=== PATIENT | male | born 1965 | race African-American/Black ===

== ENCOUNTER 2022-03-23 11:22 | Inpatient (IN) | payer OTHER ==
[~2022-03-23] VITALS: Ht 180.3 cm; Wt 67.3 kg
[2022-03-23] MEDS ORDERED: MORPHINE SULFATE 4 MG/ML CPJ (NOT FOR IM USE) IV STA ×2 (12:48→14:18)
[2022-03-23] MEDS ORDERED: ONDANSETRON HCL 4MG/2ML INJ IV STA (12:48)
[2022-03-23] MEDS ORDERED: SODIUM CHLORIDE 0.9% 1,000 ML IV ONE (13:00)
[2022-03-23 13:24] LABS: BASOPHILS % 0.5 % (0.0-2.0); EOSINOPHILS % 1.6 % (0.0-5.0); HEMATOCRIT. 44.9 % (42.0-52.0); HEMOGLOBIN. 14.8 g/dL (14.0-18.0); LYMPHOCYTES % 15.7 % (20.0-50.0); MEAN CORPUSCULAR HEMOGLOBIN 30.4 pg (28.0-32.0); MEAN CORPUSCULAR VOLUME 92.6 fL (80.0-94.0); MEAN PLATELET VOLUME 8.2 fl (7.4-10.4); MONOCYTES % 8.4 % (2.0-8.0); NEUTROPHILS % 73.8 % (40.0-76.0); PLATELET 351 x1000/uL (130-400); RED BLOOD CELL COUNT 4.85 mill/uL (4.7-6.1); RED CELL DISTRIBUTION WIDTH 14.6 % (11.6-14.6)
[2022-03-23 13:32] LABS: CHLORIDE 104 mEq/L (98-107)
[2022-03-23] MEDS ORDERED: MORPHINE SULFATE 4 MG/ML CPJ (NOT FOR IM USE) IV SCH ×2 (14:15→14:30)
[2022-03-23] MEDS ORDERED: ONDANSETRON HCL 4MG/2ML INJ IV SCH (14:30)
[2022-03-23] MEDS ORDERED: LOSARTAN POTASSIUM 25 MG TABLET PO ONE (16:30)
[2022-03-23] MEDS ORDERED: NALOXONE HCL 0.4 MG/ML 1ML VIAL IV PRN (22:00)
[2022-03-24] MEDS: MORPHINE SULFATE 2 MG/ML CPJ (NOT FOR IM USE) IV PRN ×4 (00:45→22:12)
[2022-03-24 06:38] VITALS: BP 105/83
[2022-03-24 08:00] VITALS: BP 124/85
[2022-03-24 08:16] VITALS: BP 120/74
[2022-03-24] MEDS ORDERED: ONDANSETRON HCL 4MG/2ML INJ IV PRN (09:15)
[2022-03-24] MEDS ORDERED: CLONIDINE 0.1MG TABLET PO PRN (09:15)
[2022-03-24] MEDS ORDERED: ACETAMINOPHEN 325MG TABLET PO PRN (09:15)
[2022-03-24] MEDS ORDERED: IPRATROPIUM/ALBUTEROL 0.5-3(2.5)MG/3ML NEB HHN PRN (09:15)
[2022-03-24 11:44] VITALS: BP 98/62
[2022-03-24] MEDS ORDERED: ENOXAPARIN 80MG/0.8ML SYR SUBCUT SCH (13:30)
[2022-03-24 16:00] VITALS: BP 128/79
[2022-03-24 16:04] LABS: INR 1.1; PROTHROMBIN TIME 11.9 sec (9.6-11.0)
[2022-03-24 20:00] VITALS: BP 122/80
[2022-03-25] VITALS (30 sets, daily range): BP systolic 85–149; BP diastolic 43–88
[2022-03-25 07:29] LABS: BASOPHILS % 0.5 % (0.0-2.0); EOSINOPHILS % 2.2 % (0.0-5.0); HEMATOCRIT. 43.2 % (42.0-52.0); HEMOGLOBIN. 14.4 g/dL (14.0-18.0); LYMPHOCYTES % 23.1 % (20.0-50.0); MEAN CORPUSCULAR HEMOGLOBIN 31.1 pg (28.0-32.0); MEAN CORPUSCULAR VOLUME 93.1 fL (80.0-94.0); MEAN PLATELET VOLUME 8.3 fl (7.4-10.4); MONOCYTES % 9.4 % (2.0-8.0); NEUTROPHILS % 64.8 % (40.0-76.0); PLATELET 379 x1000/uL (130-400); RED BLOOD CELL COUNT 4.64 mill/uL (4.7-6.1); RED CELL DISTRIBUTION WIDTH 14.1 % (11.6-14.6)
[2022-03-25 07:41] LABS: CHLORIDE 104 mEq/L (98-107)
[2022-03-25] MEDS: MORPHINE SULFATE 2 MG/ML CPJ (NOT FOR IM USE) IV PRN (07:42)
[2022-03-25] MEDS ORDERED: THROMBIN (BOVINE) 5000 UNITS/VIAL TOP ONE (11:32)
[2022-03-25] MEDS ORDERED: GENTAMICIN SULF 40MG/ML 2ML VIAL ONE (11:33)
[2022-03-25] MEDS ORDERED: BUPIVACAINE HCL 0.5% (5MG/ML) 50ML ONE (11:33)
[2022-03-25] MEDS ORDERED: LIDOCAINE HCL/EPINEPHRINE 1%-EPI 1:100,000 20 ML VIAL ONE (11:45)
[2022-03-25] MEDS ORDERED: ROCURONIUM BROMIDE 10MG/ML VIAL 5ML IV ONE (12:10)
[2022-03-25] MEDS ORDERED: LEVETIRACETAM 500 MG in SODIUM CHLORIDE 0.9% 100 ML IV SCH (12:15)
[2022-03-25] MEDS ORDERED: NICARDIPINE 100 MG in SODIUM CHLORIDE 0.9% 60 ML IV PRN (12:15)
[2022-03-25] MEDS ORDERED: HYDROMORPHONE HCL/PF 2MG/ML CPJ ONE (12:47)
[2022-03-25] MEDS ORDERED: CALCIUM CHLORIDE 1GM/10ML SYR IV ONE (12:53)
[2022-03-25] MEDS ORDERED: ONDANSETRON HCL 4MG/2ML INJ ONE (13:06)
[2022-03-25] MEDS ORDERED: DEXAMETHASONE 4MG/ML 1ML VIAL ONE (13:06)
[2022-03-25] MEDS ORDERED: CEFAZOLIN SODIUM 1000MG/VIAL ONE (13:06)
[2022-03-25] MEDS ORDERED: METOPROLOL TARTRATE 5MG/5ML VIAL IV ONE ×2 (13:06→13:31)
[2022-03-25] MEDS ORDERED: NEOSTIGMINE METHYLSULFATE 1MG/ML 10 ML VIAL ONE (13:07)
[2022-03-25] MEDS ORDERED: BACITRACIN 15GM TUBE TOP ONE (13:08)
[2022-03-25] MEDS ORDERED: GLYCOPYRROLATE 0.2 MG/ML 2ML VIAL ONE ×2 (13:08)
[2022-03-25] MEDS ORDERED: HYDRALAZINE 20MG/ML VIAL ONE (13:34)
[2022-03-25] MEDS ORDERED: CEFAZOLIN SODIUM 1000MG/VIAL IV SCH (14:00)
[2022-03-25] MEDS ORDERED: LEVETIRACETAM 500MG PREMIX 100 ML IV SCH (14:00)
[2022-03-25] MEDS: MORPHINE SULFATE 4 MG/ML CPJ (NOT FOR IM USE) IV PRN ×2 (14:02→20:27)
[2022-03-25] MEDS: DEXT 5%/LACTATED RINGERS 1,000 ML IV SCH (14:03)
[2022-03-25] MEDS ORDERED: CEFAZOLIN 1000MG PREMIX 50 ML IV SCH (15:30)
[2022-03-25] MEDS: CEFAZOLIN 1000MG PREMIX 50 ML IV SCH (17:11)
[2022-03-25] MEDS: LEVETIRACETAM 500MG PREMIX 100 ML IV SCH ×2 (17:11→22:30)
[2022-03-25 18:23] LABS: CLARITY URINE CLEAR (CLEAR); COLOR URINE YELLOW (YELLOW); KETONES URINE 1+ (NEGATIVE); LEUKOCYTE ESTERASE URINE 1+ (NEGATIVE); NITRITE URINE POSITIVE (NEGATIVE); OCCULT BLOOD URINE NEGATIVE (NEGATIVE); PROTEIN URINE 1+ (NEGATIVE); SPECIFIC GRAVITY URINE 1.024 (1.005-1.030); UROBILINOGEN URINE 0.2 E.U./dL (0.2-1.0)
[2022-03-26] VITALS (81 sets, daily range): BP systolic 33–150; BP diastolic 26–111
[2022-03-26] MEDS: CEFAZOLIN 1000MG PREMIX 50 ML IV SCH ×3 (00:24→17:42)
[2022-03-26] MEDS: MORPHINE SULFATE 4 MG/ML CPJ (NOT FOR IM USE) IV PRN ×7 (01:03→21:11)
[2022-03-26] MEDS: DEXT 5%/LACTATED RINGERS 1,000 ML IV SCH (04:55)
[2022-03-26 05:30] LABS: BASOPHILS % 0.2 % (0.0-2.0); EOSINOPHILS % 0.3 % (0.0-5.0); HEMATOCRIT. 35.5 % (42.0-52.0); HEMOGLOBIN. 12.1 g/dL (14.0-18.0); MEAN CORPUSCULAR HEMOGLOBIN 31.2 pg (28.0-32.0); MEAN CORPUSCULAR VOLUME 91.3 fL (80.0-94.0); MEAN PLATELET VOLUME 8.6 fl (7.4-10.4); MONOCYTES % 11.6 % (2.0-8.0); NEUTROPHILS % 73.9 % (40.0-76.0); PLATELET 349 x1000/uL (130-400); RED BLOOD CELL COUNT 3.89 mill/uL (4.7-6.1); RED CELL DISTRIBUTION WIDTH 14.3 % (11.6-14.6)
[2022-03-26] MEDS: DIPHENHYDRAMINE 50MG/ML VIAL IV PRN ×3 (07:53→20:11)
[2022-03-26] MEDS: LEVETIRACETAM 500MG PREMIX 100 ML IV SCH ×2 (07:54→20:19)
[2022-03-26] MEDS ORDERED: BISACODYL 5MG TABLET PO PRN (17:45)
[2022-03-27] VITALS (55 sets, daily range): BP systolic 79–146; BP diastolic 44–125
[2022-03-27] MEDS: MORPHINE SULFATE 4 MG/ML CPJ (NOT FOR IM USE) IV PRN ×5 (00:50→17:05)
[2022-03-27] MEDS: CEFAZOLIN 1000MG PREMIX 50 ML IV SCH ×2 (00:54→09:06)
[2022-03-27] MEDS: DIPHENHYDRAMINE 50MG/ML VIAL IV PRN ×2 (02:23→11:04)
[2022-03-27] MEDS: DEXT 5%/LACTATED RINGERS 1,000 ML IV SCH (03:35)
[2022-03-27 05:39] LABS: BASOPHILS % 0.6 % (0.0-2.0); EOSINOPHILS % 1.7 % (0.0-5.0); HEMATOCRIT. 38.1 % (42.0-52.0); HEMOGLOBIN. 12.8 g/dL (14.0-18.0); LYMPHOCYTES % 16.9 % (20.0-50.0); MEAN CORPUSCULAR VOLUME 92.1 fL (80.0-94.0); MEAN PLATELET VOLUME 8.5 fl (7.4-10.4); MONOCYTES % 11.4 % (2.0-8.0); NEUTROPHILS % 69.4 % (40.0-76.0); PLATELET 344 x1000/uL (130-400); RED BLOOD CELL COUNT 4.14 mill/uL (4.7-6.1); RED CELL DISTRIBUTION WIDTH 14.5 % (11.6-14.6)
[2022-03-27 06:29] LABS: CHLORIDE 106 mEq/L (98-107)
[2022-03-27] MEDS: LEVETIRACETAM 500MG PREMIX 100 ML IV SCH ×2 (09:06→22:52)
[2022-03-27] MEDS ORDERED: POTASSIUM CHLORIDE 20MEQ TABLET SR PO NR (10:00)
[2022-03-27] MEDS: SODIUM CHLORIDE 0.9% 1,000 ML IV SCH ×2 (10:46→21:48)
[2022-03-27] MEDS: HYDROCODONE/ACETAMINOPHEN 5/325MG TABLET PO PRN ×2 (11:05→21:49)
[2022-03-28] VITALS: BP 111/78
[2022-03-28] MEDS: HYDROCODONE/ACETAMINOPHEN 5/325MG TABLET PO PRN (03:28)
[2022-03-28 04:00] VITALS: BP 127/76
[2022-03-28 08:00] VITALS: BP 114/74
[2022-03-28] MEDS: LEVETIRACETAM 500MG PREMIX 100 ML IV SCH ×2 (09:17→20:57)
[2022-03-28] MEDS: DIPHENHYDRAMINE 50MG/ML VIAL IV PRN ×2 (10:43→20:57)
[2022-03-28 12:00] VITALS: BP 117/67
[2022-03-28] MEDS: MORPHINE SULFATE 4 MG/ML CPJ (NOT FOR IM USE) IV PRN ×2 (13:09→20:58)
[2022-03-28 16:00] VITALS: BP 111/77
[2022-03-28] MEDS: HYDROCODONE/ACETAMINOPHEN 10/325MG TABLET PO PRN (17:25)
[2022-03-28 20:00] VITALS: BP 114/68
[2022-03-29 00:17] VITALS: BP 135/82
[2022-03-29] MEDS: MORPHINE SULFATE 4 MG/ML CPJ (NOT FOR IM USE) IV PRN ×5 (00:44→21:55)
[2022-03-29] MEDS: SODIUM CHLORIDE 0.9% 1,000 ML IV SCH (02:00)
[2022-03-29 04:00] VITALS: BP 133/88
[2022-03-29 08:00] VITALS: BP 123/76
[2022-03-29] MEDS: LEVETIRACETAM 500MG PREMIX 100 ML IV SCH (08:57)
[2022-03-29 12:00] VITALS: BP 111/71
[2022-03-29] MEDS: HYDROCODONE/ACETAMINOPHEN 10/325MG TABLET PO PRN (12:36)
[2022-03-29 16:00] VITALS: BP 128/81
[2022-03-29] MEDS: LEVETIRACETAM 500MG TABLET PO SCH (17:46)
[2022-03-29 20:00] VITALS: BP 125/81
[2022-03-29] MEDS: DIPHENHYDRAMINE 50MG/ML VIAL IV PRN (21:55)
[2022-03-30] VITALS: BP 128/74
[2022-03-30 04:00] VITALS: BP 111/77
[2022-03-30] MEDS: MORPHINE SULFATE 4 MG/ML CPJ (NOT FOR IM USE) IV PRN ×2 (04:41→09:07)
[2022-03-30 08:00] VITALS: BP 123/82
[2022-03-30] MEDS: LEVETIRACETAM 500MG TABLET PO SCH ×2 (09:06→18:03)
[2022-03-30 12:00] VITALS: BP 117/73
[2022-03-30] MEDS: HYDROCODONE/ACETAMINOPHEN 10/325MG TABLET PO PRN ×2 (13:47→21:31)
[2022-03-30 16:00] VITALS: BP 118/75
[2022-03-30 20:00] VITALS: BP 125/85
[2022-03-30] MEDS: HYDROCODONE/ACETAMINOPHEN 5/325MG TABLET PO PRN (23:29)
[2022-03-31] VITALS: BP 122/86
[2022-03-31 04:00] VITALS: BP 126/90
[2022-03-31] MEDS: HYDROCODONE/ACETAMINOPHEN 10/325MG TABLET PO PRN ×3 (06:05→20:24)
[2022-03-31] MEDS ORDERED: CLINDAMYCIN 600 MG PREMIX 50 ML IV NR (07:00)
[2022-03-31 07:42] VITALS: BP 120/74
[2022-03-31] MEDS ORDERED: IOHEXOL-300 100 ML BOTTLE ONE (07:54)
[2022-03-31] MEDS ORDERED: LIDOCAINE HCL 1% 20ML VIAL (Pyxis) INJ ONE (07:54)
[2022-03-31] MEDS ORDERED: IOHEXOL-300 50 ML BOTTLE IV ONE (07:54)
[2022-03-31] MEDS ORDERED: HEPARIN 1,000 UNITS PREMIX 0 ML IV ONE (07:54)
[2022-03-31 08:56] LABS: BASOPHILS % 0.6 % (0.0-2.0); EOSINOPHILS % 4.3 % (0.0-5.0); HEMATOCRIT. 37.3 % (42.0-52.0); HEMOGLOBIN. 12.1 g/dL (14.0-18.0); LYMPHOCYTES % 18.7 % (20.0-50.0); MEAN CORPUSCULAR HEMOGLOBIN 30.4 pg (28.0-32.0); MEAN CORPUSCULAR VOLUME 93.8 fL (80.0-94.0); MEAN PLATELET VOLUME 7.9 fl (7.4-10.4); MONOCYTES % 9.4 % (2.0-8.0); PLATELET 448 x1000/uL (130-400); RED BLOOD CELL COUNT 3.98 mill/uL (4.7-6.1); RED CELL DISTRIBUTION WIDTH 14.2 % (11.6-14.6)
[2022-03-31] MEDS: LEVETIRACETAM 500MG TABLET PO SCH ×2 (08:57→17:00)
[2022-03-31 09:09] LABS: CHLORIDE 106 mEq/L (98-107)
[2022-03-31 12:30] VITALS: BP 128/80
[2022-03-31 16:00] VITALS: BP 128/76
[2022-03-31 20:00] VITALS: BP 109/80
[2022-03-31] MEDS: HYDROCODONE/ACETAMINOPHEN 5/325MG TABLET PO PRN (22:29)
[2022-04-01] VITALS (7 sets, daily range): BP systolic 105–155; BP diastolic 29–83
[2022-04-01] MEDS: HYDROCODONE/ACETAMINOPHEN 10/325MG TABLET PO PRN ×3 (04:58→21:25)
[2022-04-01] MEDS: LEVETIRACETAM 500MG TABLET PO SCH ×2 (09:34→18:26)
[2022-04-01] MEDS: HYDROCODONE/ACETAMINOPHEN 5/325MG TABLET PO PRN (09:57)
[2022-04-01 10:32] LABS: CHLORIDE 104 mEq/L (98-107)
[2022-04-01 10:34] LABS: BASOPHILS % 0.7 % (0.0-2.0); EOSINOPHILS % 4.5 % (0.0-5.0); HEMATOCRIT. 36.2 % (42.0-52.0); HEMOGLOBIN. 12.1 g/dL (14.0-18.0); LYMPHOCYTES % 24.8 % (20.0-50.0); MEAN CORPUSCULAR HEMOGLOBIN 30.5 pg (28.0-32.0); MEAN CORPUSCULAR VOLUME 91.2 fL (80.0-94.0); MEAN PLATELET VOLUME 7.9 fl (7.4-10.4); MONOCYTES % 9.8 % (2.0-8.0); NEUTROPHILS % 60.2 % (40.0-76.0); PLATELET 504 x1000/uL (130-400); RED BLOOD CELL COUNT 3.97 mill/uL (4.7-6.1); RED CELL DISTRIBUTION WIDTH 14.4 % (11.6-14.6)
[2022-04-02] VITALS: BP 119/73
[2022-04-02] MEDS: HYDROCODONE/ACETAMINOPHEN 5/325MG TABLET PO PRN (02:08)
[2022-04-02 04:00] VITALS: BP 124/80
[2022-04-02 08:00] VITALS: BP 112/80
[2022-04-02] MEDS: LEVETIRACETAM 500MG TABLET PO SCH ×2 (08:54→17:58)
[2022-04-02] MEDS: HYDROCODONE/ACETAMINOPHEN 10/325MG TABLET PO PRN ×3 (08:55→20:58)
[2022-04-02 12:00] VITALS: BP 110/78
[2022-04-02 16:00] VITALS: BP 111/76
[2022-04-02] MEDS ORDERED: NALOXONE HCL 0.4MG/ML VIAL IV PRN (18:45)
[2022-04-02 20:00] VITALS: BP 129/76
[2022-04-03] VITALS (7 sets, daily range): BP systolic 110–128; BP diastolic 62–88
[2022-04-03] MEDS: HYDROCODONE/ACETAMINOPHEN 10/325MG TABLET PO PRN ×3 (06:14→17:36)
[2022-04-03] MEDS: LEVETIRACETAM 500MG TABLET PO SCH ×2 (09:17→17:35)
[2022-04-03] MEDS ORDERED: POLYETHYLENE GLYCOL 3350 (17GM) 1 DOSE PACK PO SCH (11:15)
[2022-04-03] MEDS ORDERED: POLY17PO3 PO (11:31)
[2022-04-03] MEDS ORDERED: TOPUD PO (11:31)
[2022-04-03] MEDS ORDERED: KEPP500 PO (11:31)
[2022-04-03] MEDS ORDERED: HYDR-4001 MT (11:31)
[2022-04-03] MEDS ORDERED: NALO4SPR BOTHNSTRLS (11:31)
== END 2022-04-03 21:45 | disposition home health service (06) | DRG 21 ==
LOC: EDBD 11:22 → ER 12:56 → MICUSO 17:28 → EDBEDREQTM 17:35 → EDBEDREQ 17:35 → 7EST 03-24 06:01 → MICUNO 03-25 14:51 → 6WST 03-27 16:29
PROVIDERS: ADMIT Internal Medicine; ATTEND Internal Medicine
PROC: 0NR007Z Replacement of Skull with Autologous Tissue Substitute, Open Approach (ICD-10-PCS; principal; 2022-03-25)
PROC: 00U207Z Supplement Dura Mater with Autologous Tissue Substitute, Open Approach (ICD-10-PCS; 2022-03-25)
DX: G93.89 Other specified disorders of brain (principal); E44.1 Mild protein-calorie malnutrition; I82.412 Acute embolism and thrombosis of left femoral vein; G96.198 Other disorders of meninges, not elsewhere classified; E88.09 Other disorders of plasma-protein metabolism, not elsewhere classified; G81.94 Hemiplegia, unspecified affecting left nondominant side; F17.200 Nicotine dependence, unspecified, uncomplicated; I10 Essential (primary) hypertension; J45.909 Unspecified asthma, uncomplicated; F17.210 Nicotine dependence, cigarettes, uncomplicated; Z20.822 Contact with and (suspected) exposure to COVID-19; N39.0 Urinary tract infection, site not specified; D64.9 Anemia, unspecified; Z86.73 Personal history of transient ischemic attack (TIA), and cerebral infarction without residual deficits; Z74.01 Bed confinement status; Z88.0 Allergy status to penicillin; Z79.899 Other long term (current) drug therapy; B96.20 Unspecified Escherichia coli [E. coli] as the cause of diseases classified elsewhere
CPT/HCPCS: 36415; 71045; 73502; 80048; 80053; 80061; 81003; 83036; 83880; 85025; 87077; 87186; 87426; 93005; 93970; 99285; C1713; J0360; J0690; J1100; J1170; J1200; J1580; J1644; J1953; J2270; J2405; J2710; J3490; J7030; J7121; Q9967